=== PATIENT | female | born 1960 | race Caucasian/White ===

== ENCOUNTER 2016-08-06 12:00 | Outpatient (CLI) | payer OTHER ==
[2016-08-06 12:16] LABS: #Basophils 0.1 thou/uL (0.0-0.2); #Eosinphils 0.1 thou/uL (0.0-0.7); #Lymphocytes 2.8 thou/uL (1.20-3.40); #Monocytes 0.8 thou/uL (0.11-0.59); #Neutrophils 3.8 thou/uL (1.40-6.50); %Basophils 0.8 % (0.0-1.0); %Eosinophils 1.4 % (0.0-10.0); Hematocrit 42.1 % (36.0-47.0); Mean Platelet Volume 6.6 fL (7.4-10.4); Red Blood Cell (RBC) Count 4.37 mill/uL (4.20-5.40); White Blood Cell (WBC) Count 7.5 thou/uL (4.8-10.8)
[2016-08-06 12:59] LABS: ALT (SGPT) 22 U/L (0-55); AST (SGOT) 26 U/L (5-34); Alkaline Phosphatase 93 U/L (40-150); Anion Gap 16 mmol/L (10-20); BUN (Urea Nitrogen) 9 mg/dL (9.8-20.1); Bilirubin, Total 0.7 mg/dL (0.2-1.2); Calc. Creatinine Clearance 0 mL/min (70-130); Calcium 9.4 mg/dL (7.8-10.44); Carbon Dioxide 23 mmol/L (22-29); Chloride 106 mmol/L (98-107); Estimated GFR-MDRD 82; Globulin 3.7 g/dL (2.4-3.5); LDL Cholesterol, Calculated 148 mg/dL; Protein, Total 8.2 g/dL (6.0-8.3)
== END 2016-08-06 12:01 ==
LOC: HPCALD 12:00
PROVIDERS: ATTEND Family Medicine
DX: Z01.419 Encounter for gynecological examination (general) (routine) without abnormal findings (principal); E78.5 Hyperlipidemia, unspecified; E03.9 Hypothyroidism, unspecified
CPT/HCPCS: 36415; 80053; 80061; 84443; 85025

== ENCOUNTER 2017-01-31 12:13 | Outpatient (CLI) | payer OTHER | END 2017-01-31 12:14 | disposition home or self-care (01) | LOC: HPCALD 12:13 | PROVIDERS: ATTEND Family Medicine | DX: K58.0 Irritable bowel syndrome with diarrhea (principal) | CPT/HCPCS: 82274; 83630; 87015; 87045; 87046; 87177; 87324; 87449; 87899 ==

== ENCOUNTER 2017-02-12 11:04 | Outpatient (CLI) | payer OTHER | END 2017-02-12 11:05 | disposition home or self-care (01) | LOC: HPCALD 11:04 | PROVIDERS: ATTEND Family Medicine | DX: E03.9 Hypothyroidism, unspecified (principal) | CPT/HCPCS: 36415; 84443 ==